=== PATIENT | male | born 2005 | race Hispanic/Latino ===

== ENCOUNTER → 2023-07-06 | Outpatient (CLI) | payer MEDICAID | END | disposition home or self-care (01) | LOC: RAH 11:58 | PROVIDERS: ATTEND Internal Medicine | DX: I05.9 Rheumatic mitral valve disease, unspecified (principal); R06.02 Shortness of breath | CPT/HCPCS: 93306 ==

== ENCOUNTER 2023-07-26 06:15 | Day surgery (SDC) | payer MEDICAID ==
[2023-07-20 14:59] LABS: BASOPHILS % (AUTO) 0.8 % (0.0-5.0); EOSINOPHILS # (AUTO) 0.42 K/uL (0.00-0.70); EOSINOPHILS % (AUTO) 3.4 % (0.0-8.0); HEMATOCRIT 47.3 % (42-54); IMMATURE GRANULOCYTE ABSOLUTE 0.04 K/uL (0-1); LYMPHOCYTES # (AUTO) 4.7 K/uL (1.0-4.8); LYMPHOCYTES % (AUTO) 38.2 % (21.0-51.0); MEAN CORPUSCULAR HEMOGLOBIN 29.5 pg (27.0-33.0); MEAN CORPUSCULAR VOLUME 86.6 fL (80-100); MONOCYTES # (AUTO) 0.9 K/uL (0.1-1.0); NEUTROPHILS # (AUTO) 6.2 K/uL (1.8-7.7); NEUTROPHILS % (AUTO) 50.3 % (40.0-77.0); PLATELET COUNT (AUTO) 344 K/uL (130-400); RED BLOOD CELL COUNT(AUTO) 5.46 MIL/uL (4.50-6.20); RED CELL DISTRIBUTION WIDTH 12.2 % (11.0-15.5); WHITE BLOOD COUNT (AUTO) 12.3 K/uL (4.8-10.8)
[2023-07-20 15:16] LABS: ALBUMIN 4.1 g/dL (3.5-5.0); BILIRUBIN,TOTAL 0.5 mg/dL (0.2-1.0); CREATININE 0.7 mg/dL (0.5-1.5); POTASSIUM 3.9 mmol/L (3.5-5.1); TOTAL PROTEIN, SERUM 8.5 g/dL (6.0-8.3)
[2023-07-20 15:26] VITALS: BP 168/74; PULSE 69; RESP 18
[~2023-07-26] VITALS: Ht 160 cm; Wt 123.9 kg
[2023-07-26] VITALS (16 sets, daily range): BP systolic 123–155; BP diastolic 74–87; PULSE 73–108; RESP 15–21
[2023-07-26] MEDS ORDERED: LIDOCAINE HCL 1% MDV 50ML VIAL ONE (07:53)
[2023-07-26] MEDS ORDERED: ROCURONIUM 10MG/1ML SYR 10 MG/ML ML ONE ×2 (07:55→08:22)
[2023-07-26] MEDS ORDERED: MIDAZOLAM HCL 1 MG/ML 2ML VIAL ONE (07:55)
[2023-07-26] MEDS ORDERED: LACTATED RINGERS 1000ML 1,000 ML IV ONE (07:55)
[2023-07-26] MEDS ORDERED: PROPOFOL 10 MG/ML 20ML VIAL IV ONE (07:55)
[2023-07-26] MEDS ORDERED: LIDOCAINE PF 100MG/5ML (2%) SYRINGE 5ML ONE (07:55)
[2023-07-26] MEDS ORDERED: SUCCINYLCHOLINE CHLORIDE 20 MG/ML 10 ML VIAL ONE (07:55)
[2023-07-26] MEDS ORDERED: FENTANYL CITRATE PF 50 MCG/1 ML 2ML VIAL ONE (07:55)
[2023-07-26] MEDS ORDERED: CEFAZOLIN SODIUM 1 GM VIAL ONE (08:09)
[2023-07-26] MEDS ORDERED: IOHEXOL-350 50ML VIAL IV ONE (08:11)
[2023-07-26] MEDS ORDERED: ONDANSETRON 4MG INJ ONE (08:59)
[2023-07-26] MEDS ORDERED: NEOSTIGMINE 5MG/5ML SYR IV ONE (09:11)
[2023-07-26] MEDS ORDERED: GLYCOPYRROLATE 1 MG/5 ML SYRINGE ONE (09:11)
[2023-07-26] MEDS ORDERED: CEFAZOLIN SODIUM 2 GM VIAL IVPB ONE (09:26)
[2023-07-26] MEDS ORDERED: MEPERIDINE-PF 25 MG/ML SYG ONE (09:44)
== END 2023-07-26 10:55 | disposition home or self-care (01) ==
LOC: DAH 06:15
PROVIDERS: ATTEND Surgery
DX: K83.8 Other specified diseases of biliary tract (principal); K81.1 Chronic cholecystitis; K82.8 Other specified diseases of gallbladder; E66.01 Morbid (severe) obesity due to excess calories; E11.9 Type 2 diabetes mellitus without complications; E03.9 Hypothyroidism, unspecified; J45.909 Unspecified asthma, uncomplicated
CPT/HCPCS: 80053; 85025; 86850 ×2; 86900 ×2; 86901 ×2; 36415 ×2; 93005; 47563; 88304; 74300; A6260; A4600; A4663; A4606; A4215 ×2; C1758; J7120; J3010; J0690 ×2; J3490 ×4; J2710; J0330; J2250; J2405; J2175; Q9967; C1769 ×3; G0168; A4649; A4222; A4223; A4221; J2001; J2704